=== PATIENT | male | born 1990 ===

== ENCOUNTER 2023-12-02 17:57 | Emergency (ER) | payer MEDICAID ==
[~2023-12-02] VITALS: Ht 167.6 cm; Wt 78.3 kg
[2023-12-02 18:03] VITALS: TEMP 98.6
--- NOTE | 2023-12-02 18:16 | NUR ---
PER [facility] ER, PT AMA'D FROM THERE ER
[2023-12-02] MEDS: LIDOcaine 1% W/epiNEPHrine 1:100,000 20ml vial IJ ONE (18:23)
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
[2023-12-02 18:38] VITALS: BP 108/73; PULSE 90; O2SAT 96
[2023-12-02] MEDS: ondansetron 4mg rapidly disintigrating tab PO ONE (18:51)
[2023-12-02 18:52] VITALS: RESP 22
[2023-12-02] MEDS: HYDROcodone/acetaminophen 5mg/325mg tablet PO ONE (18:52)
[2023-12-02] MEDS: bacitracin 15gm ointment TP ONE (18:53)
[2023-12-02] MEDS: TETanus/Pertussis (Acell)/Diphther VAC/PF (Tdap-Adult) 0.5ml syringe IMVAC ONE (18:55)
[2023-12-02] MEDS: LIDOcaine 1% 30ml preserv. free vial IJ ONE (18:56)
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
--- NOTE | 2023-12-03 11:56 | NUR ---
NO WORKING PHONE NUMBER ON CHART, UNABLE TO F/U WITH PT.
== END 2023-12-02 20:19 | disposition left against medical advice (07) ==
LOC: ER 17:58
DX: S01.311A Laceration without foreign body of right ear, initial encounter (principal); S11.91XA Laceration without foreign body of unspecified part of neck, initial encounter; S61.511A Laceration without foreign body of right wrist, initial encounter; Z88.8 Allergy status to other drugs, medicaments and biological substances; X58.XXXA Exposure to other specified factors, initial encounter; Y93.89 Activity, other specified; Y92.89 Other specified places as the place of occurrence of the external cause; Y99.8 Other external cause status
CPT/HCPCS: 12011; 73100; 90471; 90715; 99284; A6253; A6446; A6449